=== PATIENT | female | born 1935 | race Two or more races ===

== ENCOUNTER 2023-02-09 19:18 | Inpatient (IN) | payer MEDICARE ==
[~2023-02-09] VITALS: Ht 167.6 cm; Wt 71.7 kg
[2023-02-09 21:24] LABS: BASOPHILS % 0.4 % (0.0-2.0); EOSINOPHILS % 3.6 % (0.0-5.0); HEMATOCRIT. 34.9 % (36.0-48.0); HEMOGLOBIN. 11.5 g/dL (12.0-16.0); LYMPHOCYTES % 23.6 % (20.0-50.0); MEAN CORPUSCULAR HEMOGLOBIN 30.2 pg (28.0-32.0); MEAN CORPUSCULAR VOLUME 91.3 fL (81.0-99.0); MEAN PLATELET VOLUME 8.5 fl (7.4-10.4); MONOCYTES % 6.4 % (2.0-8.0); PLATELET 161 x1000/uL (130-400); RED BLOOD CELL COUNT 3.82 mill/uL (4.2-5.4); RED CELL DISTRIBUTION WIDTH 14.7 % (11.6-14.6); WHITE BLOOD COUNT 5.5 x1000/uL (4.5-11.0)
[2023-02-09 21:30] LABS: CHLORIDE 107 mEq/L (98-107); INDEX HEMOLYSI 1 (1-3); INDEX ICTERIC 1 (1-4); INDEX LIPEMIC 1 (1-3); POTASSIUM 3.8 mEq/L (3.5-5.1); SODIUM 140 mEq/L (136-145)
[2023-02-09 21:40] LABS: ALANINE AMINOTRANSFERASE 27 IU/L (13-61); ALBUMIN 3.5 g/dL (3.4-5.0); ASPARTATE AMINOTRANSFERASE 17 IU/L (15-37); BILIRUBIN TOTAL 0.2 mg/dL (0.1-1.0); CALCIUM 9.3 mg/dL (8.5-10.1); CARBON DIOXIDE 28 mEq/L (21-32); CREATININE 1.1 mg/dL (0.6-1.3); GLUCOSE 136 mg/dL (70-105); PROTEIN TOTAL 7.6 g/dL (6.0-8.3); UREA NITROGEN BLOOD 20 mg/dL (7-21)
[2023-02-09 22:16] LABS: TROPONIN I HIGH SENSITIVITY 7 ng/L (<54)
[2023-02-10 02:05] LABS: TROPONIN I HIGH SENSITIVITY 7 ng/L (<54)
[2023-02-10] MEDS ORDERED: HYDRALAZINE 20MG/ML VIAL IV PRN (04:15)
[2023-02-10] MEDS ORDERED: DEXT 5%/0.9% NACL 500 ML IV ONE (04:15)
[2023-02-10 06:37] VITALS: BP 141/86; PULSE 101; RESP 16; TEMP 97.4
[2023-02-10 07:44] LABS: INDEX HEMOLYSI 2 (1-3)
[2023-02-10 08:00] VITALS: BP 135/63; PULSE 89; RESP 18; TEMP 97.3
[2023-02-10 08:08] LABS: CREATINE KINASE MB FRACTION 1.4 ng/mL (0.5-3.6); PHOSPHORUS 2.2 mg/dL (2.5-4.9)
[2023-02-10 08:14] LABS: VITAMIN B12 SERUM 1023 pg/mL (211-911)
[2023-02-10 08:24] LABS: FOLIC ACID (FOLATE) SERUM > 20.00 ng/mL (>5.38)
[2023-02-10] MEDS ORDERED: GUAIFENESIN 200MG/10ML SUGAR FREE UDC PO PRN (08:45)
[2023-02-10] MEDS ORDERED: NITROGLYCERIN 0.4MG TABLET SL SL PRN (08:45)
[2023-02-10] MEDS ORDERED: DOCUSATE SODIUM 100MG CAPSULE PO PRN (08:45)
[2023-02-10] MEDS ORDERED: ACETAMINOPHEN 325MG TABLET PO PRN ×2 (08:45)
[2023-02-10] MEDS ORDERED: MAGNESIUM/ALUMINUM HYDROXIDE/SIMETHICONE 30ML UDC PO PRN (08:45)
[2023-02-10] MEDS ORDERED: ZOLPIDEM TARTRATE 5MG TABLET PO PRN (08:45)
[2023-02-10] MEDS ORDERED: KETOROLAC 15MG/ML VIAL IV PRN (08:45)
[2023-02-10] MEDS ORDERED: IPRATROPIUM/ALBUTEROL 0.5-3(2.5)MG/3ML NEB NEB PRN (08:45)
[2023-02-10] MEDS ORDERED: CLONIDINE 0.1MG TABLET PO PRN (08:45)
[2023-02-10] MEDS ORDERED: ONDANSETRON HCL 4MG/2ML INJ IV PRN (08:45)
[2023-02-10] MEDS: ASPIRIN 325MG EC TABLET PO SCH (09:50)
[2023-02-10] MEDS: AMLODIPINE 10MG TABLET PO SCH (09:50)
[2023-02-10] MEDS: ENOXAPARIN 30MG/0.3ML SYR SUBCUT SCH (09:51)
[2023-02-10] MEDS ORDERED: TRAZ-251 MT (10:02)
[2023-02-10] MEDS ORDERED: DONE23TA3 MT (10:02)
[2023-02-10] MEDS ORDERED: ISMO20 MT (10:02)
[2023-02-10] MEDS ORDERED: IPRA4AER INH (10:02)
[2023-02-10] MEDS ORDERED: CLON-457 PO (10:02)
[2023-02-10] MEDS ORDERED: TELM80TA8 MT (10:02)
[2023-02-10] MEDS ORDERED: ATOR10TA PO (10:02)
[2023-02-10] MEDS ORDERED: POTASSIUM PHOS,M-BASIC-D-BASIC 10 MMOL in DEXT 5% WATER 246.6667 ML IV NR (10:30)
[2023-02-10 12:00] VITALS: BP 157/70; PULSE 78; RESP 17; TEMP 96.9
[2023-02-10 12:10] LABS: CLARITY URINE CLOUDY (CLEAR); COLOR URINE YELLOW (YELLOW); GLUCOSE URINE NEGATIVE (NEGATIVE); KETONES URINE NEGATIVE (NEGATIVE); LEUKOCYTE ESTERASE URINE NEGATIVE (NEGATIVE); NITRITE URINE NEGATIVE (NEGATIVE); OCCULT BLOOD URINE NEGATIVE (NEGATIVE); PROTEIN URINE NEGATIVE (NEGATIVE); UROBILINOGEN URINE 0.2 E.U./dL (0.2-1.0)
[2023-02-10 12:13] LABS: RBC URINE 0-2 /hpf (0-2); SQUAMOUS EPITHELIAL CELL URINE 1+ /lpf (RARE/1+); WBC URINE 0-2 /hpf (0-2); YEAST URINE NONE SEEN
[2023-02-10 12:32] LABS: BACTERIA URINE FEW
[2023-02-10 13:41] LABS: *AMPHETAMINES SCREEN URINE NEGATIVE (NEGATIVE); *BARBITURATES SCREEN URINE NEGATIVE (NEGATIVE); *BENZODIAZEPINES SCREEN URINE NEGATIVE (NEGATIVE); *COCAINE SCREEN URINE NEGATIVE (NEGATIVE); CANNABINOID URINE SCREEN NEGATIVE (NEGATIVE); ECSTASY MDMA SCREEN URINE NEGATIVE (NEGATIVE); METHADONE URINE SCREEN NEGATIVE (NEGATIVE); OPIATES URINE SCREEN NEGATIVE (NEGATIVE); PHENCYCLIDINE URINE SCREEN NEGATIVE (NEGATIVE)
[2023-02-10 20:00] VITALS: BP 133/55; PULSE 76; RESP 18; TEMP 98.6
[2023-02-10] MEDS: FAMOTIDINE 20MG TABLET PO SCH (21:39)
[2023-02-10 23:39] LABS: CREATINE KINASE MB FRACTION 1.5 ng/mL (0.5-3.6)
[2023-02-11] VITALS: BP 128/60; PULSE 89; RESP 18; TEMP 98.8
[2023-02-11 04:00] VITALS: BP 150/57; PULSE 64; RESP 20; TEMP 98.8
[2023-02-11 06:52] LABS: BASOPHILS % 0.8 % (0.0-2.0); EOSINOPHILS % 6.2 % (0.0-5.0); HEMATOCRIT. 33.8 % (36.0-48.0); HEMOGLOBIN. 11.1 g/dL (12.0-16.0); LYMPHOCYTES % 38.8 % (20.0-50.0); MEAN CORPUSCULAR HEMOGLOBIN 29.8 pg (28.0-32.0); MEAN CORPUSCULAR HGB CONC 32.9 g/dL (31.0-37.0); MEAN CORPUSCULAR VOLUME 90.7 fL (81.0-99.0); MEAN PLATELET VOLUME 9.4 fl (7.4-10.4); MONOCYTES % 9.2 % (2.0-8.0); PLATELET 170 x1000/uL (130-400); RED BLOOD CELL COUNT 3.73 mill/uL (4.2-5.4); RED CELL DISTRIBUTION WIDTH 14.7 % (11.6-14.6); WHITE BLOOD COUNT 3.6 x1000/uL (4.5-11.0)
[2023-02-11 07:34] LABS: CHLORIDE 110 mEq/L (98-107); INDEX HEMOLYSI 1 (1-3); INDEX ICTERIC 1 (1-4); INDEX LIPEMIC 1 (1-3); POTASSIUM 3.8 mEq/L (3.5-5.1); SODIUM 141 mEq/L (136-145)
[2023-02-11 07:47] LABS: ALANINE AMINOTRANSFERASE 22 IU/L (13-61); ALBUMIN 3.3 g/dL (3.4-5.0); ASPARTATE AMINOTRANSFERASE 19 IU/L (15-37); BILIRUBIN TOTAL 0.4 mg/dL (0.1-1.0); CALCIUM 8.9 mg/dL (8.5-10.1); CARBON DIOXIDE 26 mEq/L (21-32); CHOLESTEROL 154 mg/dL (<200); CREATININE 0.9 mg/dL (0.6-1.3); GLUCOSE 99 mg/dL (70-105); HDL CHOLESTEROL 80 mg/dL (40-59); LDL CHOLESTEROL 75 mg/dL (5-100); PHOSPHORUS 3.4 mg/dL (2.5-4.9); PROTEIN TOTAL 7.1 g/dL (6.0-8.3); T4 FREE 1.08 ng/dL (0.76-1.46); TRIGLYCERIDE 53 mg/dL (0-150); TROPONIN I HIGH SENSITIVITY 17 ng/L (<54); UREA NITROGEN BLOOD 15 mg/dL (7-21)
[2023-02-11 08:00] VITALS: BP 140/98; PULSE 77; RESP 20; TEMP 98
[2023-02-11] MEDS ORDERED: CEFTRIAXONE 1GM PREMIX 50 ML IV SCH (09:30)
[2023-02-11] MEDS: AMLODIPINE 10MG TABLET PO SCH (10:59)
[2023-02-11] MEDS: ASPIRIN 325MG EC TABLET PO SCH (10:59)
[2023-02-11] MEDS: ENOXAPARIN 30MG/0.3ML SYR SUBCUT SCH (11:00)
[2023-02-11] MEDS: LOSARTAN POTASSIUM 50 MG TABLET PO SCH (11:25)
[2023-02-11 12:00] VITALS: BP 139/44; PULSE 80; RESP 20; TEMP 98.1
[2023-02-11] MEDS: CEFTRIAXONE 1,000 MG in DEXTROSE 5% WATER 50 ML IV SCH (13:06)
[2023-02-11 16:00] VITALS: BP 157/51; PULSE 82; RESP 20; TEMP 98.1
[2023-02-11 20:00] VITALS: BP 138/58; PULSE 80; RESP 17; TEMP 97.6
[2023-02-11] MEDS: FAMOTIDINE 20MG TABLET PO SCH (20:41)
[2023-02-12] VITALS: BP 116/56; PULSE 70; RESP 20; TEMP 97.6
[2023-02-12 04:00] VITALS: BP 148/51; PULSE 71; RESP 18; TEMP 97.6
[2023-02-12 08:00] VITALS: BP 136/72; PULSE 68; RESP 16; TEMP 96.9
[2023-02-12 08:35] LABS: CHLORIDE 109 mEq/L (98-107); HEMATOCRIT 34.8 % (36.0-48.0); HEMOGLOBIN 11.4 g/dL (12.0-16.0); INDEX HEMOLYSI 2 (1-3); INDEX ICTERIC 1 (1-4); INDEX LIPEMIC 1 (1-3); MEAN CORPUSCULAR HEMOGLOBIN 29.8 pg (28.0-32.0); MEAN CORPUSCULAR HGB CONC 32.7 g/dL (31.0-37.0); MEAN CORPUSCULAR VOLUME 91.1 fL (81.0-99.0); POTASSIUM 3.6 mEq/L (3.5-5.1); RED BLOOD CELL COUNT 3.82 mill/uL (4.2-5.4); RED CELL DISTRIBUTION WIDTH 14.2 % (11.6-14.6); SODIUM 140 mEq/L (136-145); WHITE BLOOD COUNT 5.5 x1000/uL (4.5-11.0)
[2023-02-12 08:43] LABS: ALANINE AMINOTRANSFERASE 18 IU/L (13-61); ALBUMIN 3.1 g/dL (3.4-5.0); ASPARTATE AMINOTRANSFERASE 18 IU/L (15-37); BILIRUBIN TOTAL 0.3 mg/dL (0.1-1.0); CALCIUM 8.8 mg/dL (8.5-10.1); CARBON DIOXIDE 26 mEq/L (21-32); CREATININE 0.9 mg/dL (0.6-1.3); GLUCOSE 108 mg/dL (70-105); UREA NITROGEN BLOOD 13 mg/dL (7-21)
[2023-02-12] MEDS: ASPIRIN 325MG EC TABLET PO SCH (10:40)
[2023-02-12] MEDS: CEFTRIAXONE 1,000 MG in DEXTROSE 5% WATER 50 ML IV SCH (10:40)
[2023-02-12] MEDS: LOSARTAN POTASSIUM 50 MG TABLET PO SCH (10:40)
[2023-02-12] MEDS: ENOXAPARIN 30MG/0.3ML SYR SUBCUT SCH (10:41)
[2023-02-12] MEDS: AMLODIPINE 10MG TABLET PO SCH (10:46)
[2023-02-12 12:00] VITALS: BP 132/52; PULSE 73; RESP 16; TEMP 96.4
[2023-02-12] MEDS ORDERED: LEVO-65 MT (14:27)
[2023-02-12 16:00] VITALS: BP 120/63; PULSE 70; RESP 17; TEMP 96.8
[2023-02-12 16:00] LABS: PLATELET 131 x1000/uL (130-400)
[2023-02-12 20:00] VITALS: BP 149/85; PULSE 70; RESP 18; TEMP 98.1
[2023-02-12] MEDS: FAMOTIDINE 20MG TABLET PO SCH (21:03)
[2023-02-13] VITALS: BP 119/53; PULSE 71; RESP 17; TEMP 98.1
[2023-02-13 08:00] VITALS: BP 144/97; RESP 20; TEMP 99
[2023-02-13] MEDS: ASPIRIN 325MG EC TABLET PO SCH (09:37)
[2023-02-13] MEDS: LOSARTAN POTASSIUM 50 MG TABLET PO SCH (09:38)
[2023-02-13] MEDS: AMLODIPINE 10MG TABLET PO SCH (09:38)
[2023-02-13] MEDS: ENOXAPARIN 30MG/0.3ML SYR SUBCUT SCH (09:38)
[2023-02-13 11:15] VITALS: BP 126/60; PULSE 82; TEMP 97; O2SAT 98
== END 2023-02-13 11:55 | disposition home health service (06) | DRG 280 ==
LOC: ER 19:18 → MICUSO 22:28 → 8WST 02-10 05:26
PROVIDERS: ADMIT Internal Medicine; ATTEND Internal Medicine
DX: I21.4 Non-ST elevation (NSTEMI) myocardial infarction (principal); G92.9 Unspecified toxic encephalopathy; L97.329 Non-pressure chronic ulcer of left ankle with unspecified severity; N39.0 Urinary tract infection, site not specified; I16.0 Hypertensive urgency; E78.5 Hyperlipidemia, unspecified; D50.9 Iron deficiency anemia, unspecified; F03.90 Unspecified dementia, unspecified severity, without behavioral disturbance, psychotic disturbance, mood disturbance, and anxiety; I10 Essential (primary) hypertension; I20.8 Other forms of angina pectoris; R73.03 Prediabetes; Z79.82 Long term (current) use of aspirin; Z79.899 Other long term (current) drug therapy
CPT/HCPCS: 36415; 71045; 76881; 80053; 80061; 80305; 81003; 82550; 82553; 82607; 82728; 82746; 83036; 83540; 83550; 83605; 83735; 83880; 84100; 84145; 84439; 84443; 84484; 85025; 85027; 85379; 87077; 87186; 93005; 93306; 93970; 97162; 97166; 97530; 99285; J0360; J0696; J1650; J3490; J7060

== ENCOUNTER 2023-04-29 18:24 | Inpatient (IN) | payer MEDICARE ==
[~2023-04-29] VITALS: Ht 162.6 cm; Wt 63.5 kg
[~2023-04-29 18:24] MED LIST: ATOR10TA PO; CLON-493 PO; DONE23TA3 MT; IPRA4AER INH; ISMO20 MT; LEVO-65 MT; TELM80TA8 MT; TRAZ-251 MT
[2023-04-29] MEDS ORDERED: ONDANSETRON HCL 4MG/2ML INJ IV STA (18:28)
[2023-04-29] MEDS ORDERED: SODIUM CHLORIDE 0.9% 1,000 ML IV ONE (18:30)
[2023-04-29 18:48] LABS: BASOPHILS % 1.2 % (0.0-2.0); EOSINOPHILS % 2.7 % (0.0-5.0); HEMATOCRIT. 37.3 % (36.0-48.0); LYMPHOCYTES % 52.5 % (20.0-50.0); MEAN CORPUSCULAR HGB CONC 32.1 g/dL (31.0-37.0); MEAN CORPUSCULAR VOLUME 93.6 fL (81.0-99.0); MEAN PLATELET VOLUME 9.6 fl (7.4-10.4); MONOCYTES % 6.7 % (2.0-8.0); NEUTROPHILS % 36.9 % (40.0-76.0); PLATELET 138 x1000/uL (130-400); RED BLOOD CELL COUNT 3.98 mill/uL (4.2-5.4); RED CELL DISTRIBUTION WIDTH 15.4 % (11.6-14.6); WHITE BLOOD COUNT 5.6 x1000/uL (4.5-11.0)
[2023-04-29 19:07] LABS: CHLORIDE 110 mEq/L (98-107); INDEX HEMOLYSI 4 (1-3); INDEX ICTERIC 1 (1-4); INDEX LIPEMIC 1 (1-3); SODIUM 142 mEq/L (136-145)
[2023-04-29 19:11] LABS: POTASSIUM 4.4 mEq/L (3.5-5.1)
[2023-04-29 19:16] LABS: ALANINE AMINOTRANSFERASE 23 IU/L (13-61); ALBUMIN 3.7 g/dL (3.4-5.0); ASPARTATE AMINOTRANSFERASE 30 IU/L (15-37); BILIRUBIN TOTAL 0.5 mg/dL (0.1-1.0); CALCIUM 8.6 mg/dL (8.5-10.1); CARBON DIOXIDE 26 mEq/L (21-32); CREATININE 1.2 mg/dL (0.6-1.3); GLUCOSE 128 mg/dL (70-105); NT PRO B-TYPE NATRIURETIC PEP 444 pg/mL (5-125); PROTEIN TOTAL 7.9 g/dL (6.0-8.3); TROPONIN I HIGH SENSITIVITY 8 ng/L (<54); UREA NITROGEN BLOOD 18 mg/dL (7-21)
[2023-04-29 21:14] VITALS: BP 127/62; PULSE 69; RESP 16; TEMP 97.7
[2023-04-29] MEDS ORDERED: GUAIFENESIN 200MG/10ML SUGAR FREE UDC PO PRN (22:30)
[2023-04-29] MEDS ORDERED: MAGNESIUM/ALUMINUM HYDROXIDE/SIMETHICONE 30ML UDC PO PRN (22:30)
[2023-04-29] MEDS ORDERED: DOCUSATE SODIUM 100MG CAPSULE PO PRN (22:30)
[2023-04-29] MEDS ORDERED: ONDANSETRON HCL 4MG/2ML INJ IV PRN (22:30)
[2023-04-29] MEDS ORDERED: ACETAMINOPHEN 325MG TABLET PO PRN ×2 (22:30)
[2023-04-29] MEDS ORDERED: CLONIDINE 0.1MG TABLET PO PRN (22:30)
[2023-04-29] MEDS ORDERED: IPRATROPIUM/ALBUTEROL 0.5-3(2.5)MG/3ML NEB HHN PRN (22:30)
[2023-04-30] VITALS: BP_SYST 115; BP_SYST 128; BP_DIAS 46; BP_DIAS 56; PULSE 61; PULSE 67; RESP 16; TEMP 97.9; TEMP 98.1
[2023-04-30] MEDS: DONEPEZIL HCL 10MG TABLET PO SCH ×3 (01:04→22:20)
[2023-04-30] MEDS: LOSARTAN 100 MG TABLET PO SCH ×2 (01:04→09:42)
[2023-04-30 04:49] VITALS: BP 149/87; PULSE 70; RESP 18; TEMP 97.4
[2023-04-30 06:26] LABS: BASOPHILS % 0.3 % (0.0-2.0); EOSINOPHILS % 2.2 % (0.0-5.0); HEMATOCRIT. 31.5 % (36.0-48.0); HEMOGLOBIN. 10.5 g/dL (12.0-16.0); LYMPHOCYTES % 43.2 % (20.0-50.0); MEAN CORPUSCULAR HEMOGLOBIN 30.9 pg (28.0-32.0); MEAN CORPUSCULAR HGB CONC 33.3 g/dL (31.0-37.0); MEAN CORPUSCULAR VOLUME 92.8 fL (81.0-99.0); MEAN PLATELET VOLUME 9.7 fl (7.4-10.4); MONOCYTES % 8.7 % (2.0-8.0); NEUTROPHILS % 45.6 % (40.0-76.0); PLATELET 124 x1000/uL (130-400); RED BLOOD CELL COUNT 3.39 mill/uL (4.2-5.4); RED CELL DISTRIBUTION WIDTH 15.2 % (11.6-14.6); WHITE BLOOD COUNT 3.9 x1000/uL (4.5-11.0)
[2023-04-30 06:30] LABS: CHLORIDE 112 mEq/L (98-107); INDEX HEMOLYSI 1 (1-3); INDEX ICTERIC 1 (1-4); INDEX LIPEMIC 1 (1-3); POTASSIUM 3.8 mEq/L (3.5-5.1); SODIUM 143 mEq/L (136-145)
[2023-04-30 06:53] LABS: ALANINE AMINOTRANSFERASE 17 IU/L (13-61); ALBUMIN 3.2 g/dL (3.4-5.0); ASPARTATE AMINOTRANSFERASE 10 IU/L (15-37); BILIRUBIN TOTAL 0.4 mg/dL (0.1-1.0); CALCIUM 8.6 mg/dL (8.5-10.1); CARBON DIOXIDE 28 mEq/L (21-32); CHOLESTEROL 141 mg/dL (<200); GLUCOSE 94 mg/dL (70-105); HDL CHOLESTEROL 70 mg/dL (40-59); LDL CHOLESTEROL 69 mg/dL (5-100); PROTEIN TOTAL 6.4 g/dL (6.0-8.3); T4 FREE 1.09 ng/dL (0.76-1.46); TRIGLYCERIDE 55 mg/dL (0-150); UREA NITROGEN BLOOD 18 mg/dL (7-21)
[2023-04-30 08:00] VITALS: BP 143/62; PULSE 61; RESP 18; TEMP 98.1
[2023-04-30] MEDS ORDERED: MEDICATION NOT ON FORMULARY EA (Donepezil HCl 1 TAB) MT SCH (09:00)
[2023-04-30] MEDS: FAMOTIDINE 20MG TABLET PO SCH (09:41)
[2023-04-30] MEDS: ISOSORBIDE MONONITRATE 20MG TABLET PO SCH (09:41)
[2023-04-30 12:00] VITALS: BP 111/43; PULSE 60; RESP 20; TEMP 99
[2023-04-30 14:06] LABS: TROPONIN I HIGH SENSITIVITY 9 ng/L (<54)
[2023-04-30 16:00] VITALS: BP 138/51; PULSE 100; RESP 20; TEMP 97.9
[2023-04-30 20:00] VITALS: BP 128/46; PULSE 61; RESP 16; TEMP 97.9
[2023-04-30] MEDS: TRAZODONE HCL 50MG TABLET PO SCH (22:20)
[2023-04-30] MEDS: ATORVASTATIN CALCIUM 10MG TABLET PO SCH (22:21)
[2023-04-30] MEDS ORDERED: INFLUENZA VACCINE 05/PF 0.5 ML SYRINGE IM ONE (22:30)
[2023-04-30] MEDS ORDERED: PNEUMOCOCCAL 23-VAL P-SAC VAC 0.5 ML IM ONE (22:30)
[2023-04-30] MEDS ORDERED: CLON1PAT11 TD (22:32)
[2023-04-30] MEDS ORDERED: PANT40TA51 PO (22:32)
[2023-04-30] MEDS ORDERED: TRAZ-251 PO (22:32)
[2023-04-30] MEDS ORDERED: AMLO5TAB88 PO (22:32)
[2023-04-30] MEDS ORDERED: DONE-53 PO (22:34)
[2023-04-30] MEDS ORDERED: DOCU-150 PO (22:34)
[2023-04-30] MEDS ORDERED: ISOS30TA91 PO (22:34)
[2023-04-30] MEDS ORDERED: ATOR10TA69 PO (22:34)
[2023-05-01] VITALS: BP 113/41; PULSE 62; RESP 17; TEMP 97.7
[2023-05-01 04:00] VITALS: BP 129/43; PULSE 57; RESP 57; TEMP 97.5
[2023-05-01 06:32] LABS: BASOPHILS % 0.5 % (0.0-2.0); LYMPHOCYTES % 47.9 % (20.0-50.0); MEAN CORPUSCULAR HEMOGLOBIN 30.5 pg (28.0-32.0); MEAN CORPUSCULAR HGB CONC 33.4 g/dL (31.0-37.0); MEAN CORPUSCULAR VOLUME 91.5 fL (81.0-99.0); MONOCYTES % 6.7 % (2.0-8.0); NEUTROPHILS % 39.9 % (40.0-76.0); PLATELET 129 x1000/uL (130-400); RED BLOOD CELL COUNT 3.28 mill/uL (4.2-5.4); RED CELL DISTRIBUTION WIDTH 15.4 % (11.6-14.6); WHITE BLOOD COUNT 3.8 x1000/uL (4.5-11.0)
[2023-05-01 07:14] LABS: POTASSIUM 4.1 mEq/L (3.5-5.1)
[2023-05-01 08:00] VITALS: BP 140/48; PULSE 64; RESP 16; TEMP 96.5
[2023-05-01] MEDS: ISOSORBIDE MONONITRATE 20MG TABLET PO SCH (09:16)
[2023-05-01] MEDS: LOSARTAN 100 MG TABLET PO SCH (09:17)
[2023-05-01] MEDS: DONEPEZIL HCL 10MG TABLET PO SCH ×2 (09:17→21:15)
[2023-05-01 12:00] VITALS: BP 119/48; PULSE 70; RESP 17; TEMP 96.5
[2023-05-01 20:00] VITALS: BP 122/45; PULSE 71; RESP 20; TEMP 97.3
[2023-05-01] MEDS: ATORVASTATIN CALCIUM 10MG TABLET PO SCH (21:15)
[2023-05-01] MEDS: TRAZODONE HCL 50MG TABLET PO SCH (21:15)
[2023-05-02] VITALS: BP 123/41; PULSE 56; RESP 17; TEMP 97.8
[2023-05-02 04:00] VITALS: BP_SYST 149; BP_DIAS 47; BP_DIAS 71; PULSE 72; RESP 16; RESP 18; TEMP 97.8
[2023-05-02 08:00] VITALS: BP 124/58; PULSE 82; RESP 19; TEMP 97.6
[2023-05-02] MEDS: FAMOTIDINE 20MG TABLET PO SCH (08:43)
[2023-05-02] MEDS: LOSARTAN 100 MG TABLET PO SCH (08:44)
[2023-05-02] MEDS: DONEPEZIL HCL 10MG TABLET PO SCH (08:44)
[2023-05-02] MEDS: ISOSORBIDE MONONITRATE 20MG TABLET PO SCH (08:44)
[2023-05-02 12:00] VITALS: BP 111/49; PULSE 84; RESP 18; TEMP 97.6
[2023-05-02 15:21] VITALS: BP 111/49; PULSE 82; TEMP 97.6; O2SAT 96
[2023-05-02 16:00] VITALS: BP 104/56; PULSE 80; RESP 16; TEMP 97
== END 2023-05-02 16:20 | DRG 871 ==
LOC: ER 18:24 → 8WST 19:30 → EDBEDREQ 19:32
PROVIDERS: ADMIT Internal Medicine; ATTEND Internal Medicine
DX: A41.9 Sepsis, unspecified organism (principal); G93.41 Metabolic encephalopathy; I50.30 Unspecified diastolic (congestive) heart failure; D64.9 Anemia, unspecified; E78.5 Hyperlipidemia, unspecified; F03.90 Unspecified dementia, unspecified severity, without behavioral disturbance, psychotic disturbance, mood disturbance, and anxiety; I11.0 Hypertensive heart disease with heart failure; G40.909 Epilepsy, unspecified, not intractable, without status epilepticus; I49.9 Cardiac arrhythmia, unspecified; I25.10 Atherosclerotic heart disease of native coronary artery without angina pectoris; I25.2 Old myocardial infarction; I44.0 Atrioventricular block, first degree; K59.00 Constipation, unspecified; Z79.899 Other long term (current) drug therapy; Z82.49 Family history of ischemic heart disease and other diseases of the circulatory system
CPT/HCPCS: 36415; 70551; 71045; 80048; 80053; 80061; 83605; 83880; 84145; 84439; 84443; 84484; 85025; 93005; 93306; 97162; 97166; 97530; 97535; 99285; J2405; J7030

== ENCOUNTER 2023-10-27 15:12 | Inpatient (IN) | payer MEDICARE ==
[~2023-10-27] VITALS: Ht 162.6 cm; Wt 64.0 kg
[~2023-10-27 15:12] MED LIST changes: +AMLO5TAB88 PO; -ATOR10TA PO; +ATOR10TA69 PO; -CLON-493 PO; +DOCU-150 PO; +DONE-53 PO; -DONE23TA3 MT; -IPRA4AER INH; -ISMO20 MT; +ISOS30TA91 PO; -LEVO-65 MT; +LOSA-415 MT; +PANT40TA51 PO; -TRAZ-251 MT
[2023-10-27 16:12] LABS: BASOPHILS % 0.7 % (0.0-2.0); EOSINOPHILS % 1.5 % (0.0-5.0); HEMATOCRIT. 36.7 % (36.0-48.0); HEMOGLOBIN. 11.8 g/dL (12.0-16.0); LYMPHOCYTES % 30.7 % (20.0-50.0); MEAN CORPUSCULAR HGB CONC 32.3 g/dL (31.0-37.0); MEAN PLATELET VOLUME 9.3 fl (7.4-10.4); MONOCYTES % 6.5 % (2.0-8.0); NEUTROPHILS % 60.6 % (40.0-76.0); PLATELET 126 x1000/uL (130-400); RED BLOOD CELL COUNT 3.82 mill/uL (4.2-5.4); RED CELL DISTRIBUTION WIDTH 15.5 % (11.6-14.6); WHITE BLOOD COUNT 4.5 x1000/uL (4.5-11.0)
[2023-10-27 16:20] LABS: CHLORIDE 109 mEq/L (98-107); POTASSIUM 3.6 mEq/L (3.5-5.1); SODIUM 141 mEq/L (136-145)
[2023-10-27 16:21] LABS: CALCIUM 9.8 mg/dL (8.7-10.4); CARBON DIOXIDE 25 mEq/L (21-32)
[2023-10-27 16:26] LABS: CREATININE 1.2 mg/dL (0.6-1.0); GLUCOSE 122 mg/dL (70-105); UREA NITROGEN BLOOD 15 mg/dL (9-23)
[2023-10-27 16:54] LABS: TROPONIN I HIGH SENSITIVITY < 4 ng/L (3.0-34)
[2023-10-27 17:50] LABS: TROPONIN I HIGH SENSITIVITY < 4 ng/L (3.0-34)
[2023-10-27 20:01] LABS: PROTHROMBIN TIME 10.9 sec (9.6-11.0)
[2023-10-27] MEDS ORDERED: ACETAMINOPHEN 325MG TABLET PO PRN ×2 (22:15)
[2023-10-27] MEDS ORDERED: ONDANSETRON HCL 4MG/2ML INJ IV PRN (22:15)
[2023-10-27] MEDS ORDERED: CLONIDINE 0.1MG TABLET PO PRN (22:15)
[2023-10-27] MEDS ORDERED: IPRATROPIUM/ALBUTEROL 0.5-3(2.5)MG/3ML NEB HHN PRN (22:15)
[2023-10-28 01:02] LABS: TROPONIN I HIGH SENSITIVITY < 4 ng/L (3.0-34)
[2023-10-28 02:32] VITALS: BP 156/64; PULSE 88; RESP 20; TEMP 98.2
[2023-10-28 04:00] VITALS: BP 122/56; PULSE 67; RESP 18; TEMP 97.7
[2023-10-28 07:22] LABS: CARBON DIOXIDE 25 mEq/L (21-32); CHLORIDE 110 mEq/L (98-107); POTASSIUM 3.5 mEq/L (3.5-5.1); SODIUM 141 mEq/L (136-145)
[2023-10-28 07:23] LABS: CALCIUM 9.7 mg/dL (8.7-10.4)
[2023-10-28 07:28] LABS: CREATININE 0.8 mg/dL (0.6-1.0); GLUCOSE 107 mg/dL (70-105); UREA NITROGEN BLOOD 15 mg/dL (9-23)
[2023-10-28 07:59] LABS: BASOPHILS % 0.4 % (0.0-2.0); EOSINOPHILS % 1.7 % (0.0-5.0); HEMATOCRIT. 30.8 % (36.0-48.0); HEMOGLOBIN. 10.2 g/dL (12.0-16.0); LYMPHOCYTES % 37.4 % (20.0-50.0); MEAN CORPUSCULAR HEMOGLOBIN 30.3 pg (28.0-32.0); MEAN CORPUSCULAR VOLUME 91.7 fL (81.0-99.0); MEAN PLATELET VOLUME 9.2 fl (7.4-10.4); MONOCYTES % 7.5 % (2.0-8.0); PLATELET 149 x1000/uL (130-400); RED BLOOD CELL COUNT 3.36 mill/uL (4.2-5.4); RED CELL DISTRIBUTION WIDTH 14.8 % (11.6-14.6); WHITE BLOOD COUNT 4.1 x1000/uL (4.5-11.0)
[2023-10-28 08:00] VITALS: BP 136/50; PULSE 63; RESP 18; TEMP 97.7
[2023-10-28 12:00] VITALS: BP 107/59; PULSE 60; RESP 18; TEMP 97.6
[2023-10-28] MEDS ORDERED: HYDRALAZINE HCL 25MG TABLET PO PRN (15:00)
[2023-10-28] MEDS: POTASSIUM CHLORIDE 20MEQ TABLET SR PO NR (15:39)
[2023-10-28 15:50] LABS: CLARITY URINE CLEAR (CLEAR); COLOR URINE YELLOW (YELLOW); GLUCOSE URINE NEGATIVE (NEGATIVE); KETONES URINE NEGATIVE (NEGATIVE); LEUKOCYTE ESTERASE URINE NEGATIVE (NEGATIVE); NITRITE URINE NEGATIVE (NEGATIVE); OCCULT BLOOD URINE NEGATIVE (NEGATIVE); PROTEIN URINE NEGATIVE (NEGATIVE); SPECIFIC GRAVITY URINE 1.021 (1.005-1.030); UROBILINOGEN URINE 0.2 E.U./dL (0.2-1.0)
[2023-10-28 16:00] VITALS: BP_SYST 134; BP_SYST 139; BP_SYST 144; BP_DIAS 51; BP_DIAS 56; BP_DIAS 60; PULSE 64; RESP 18; TEMP 97.8
[2023-10-28 22:39] VITALS: BP 139/51; PULSE 61; RESP 18; TEMP 97.7
[2023-10-29] VITALS: BP 151/64; PULSE 67; RESP 17; TEMP 97.7
[2023-10-29 04:00] VITALS: BP 148/61; PULSE 71; RESP 20; TEMP 97.5
[2023-10-29 07:26] LABS: BASOPHILS % 0.6 % (0.0-2.0); EOSINOPHILS % 2.3 % (0.0-5.0); HEMATOCRIT. 32.4 % (36.0-48.0); HEMOGLOBIN. 10.7 g/dL (12.0-16.0); LYMPHOCYTES % 47.7 % (20.0-50.0); MEAN CORPUSCULAR HEMOGLOBIN 30.3 pg (28.0-32.0); MEAN CORPUSCULAR HGB CONC 33.1 g/dL (31.0-37.0); MEAN CORPUSCULAR VOLUME 91.5 fL (81.0-99.0); MEAN PLATELET VOLUME 9.2 fl (7.4-10.4); MONOCYTES % 7.1 % (2.0-8.0); NEUTROPHILS % 42.3 % (40.0-76.0); PLATELET 160 x1000/uL (130-400); RED BLOOD CELL COUNT 3.54 mill/uL (4.2-5.4); RED CELL DISTRIBUTION WIDTH 15.1 % (11.6-14.6); WHITE BLOOD COUNT 3.7 x1000/uL (4.5-11.0)
[2023-10-29 07:28] LABS: CARBON DIOXIDE 25 mEq/L (21-32); CHLORIDE 106 mEq/L (98-107); POTASSIUM 3.9 mEq/L (3.5-5.1); SODIUM 139 mEq/L (136-145)
[2023-10-29 07:29] LABS: CALCIUM 9.9 mg/dL (8.7-10.4)
[2023-10-29 07:34] LABS: CREATININE 0.8 mg/dL (0.6-1.0); GLUCOSE 86 mg/dL (70-105); TRIGLYCERIDE 69 mg/dL (0-150); UREA NITROGEN BLOOD 14 mg/dL (9-23)
[2023-10-29 07:35] LABS: LDL CHOLESTEROL 86 mg/dL (5-100)
[2023-10-29 07:36] LABS: CHOLESTEROL 156 mg/dL (<200); HDL CHOLESTEROL 62 mg/dL (>65); T4 FREE 1.22 ng/dL (0.89-1.76); THYROID STIMULATING HORMONE 3.51 uIU/mL (0.55-4.78)
[2023-10-29 08:00] VITALS: BP 158/61; PULSE 65; RESP 18; TEMP 98.6
[2023-10-29] MEDS: DOCUSATE SODIUM 100MG CAPSULE PO PRN (09:32)
[2023-10-29 12:00] VITALS: BP 107/56; PULSE 64; RESP 18; TEMP 98.1
[2023-10-29 13:22] VITALS: BP 107/56; PULSE 64; TEMP 98.1; O2SAT 96
[2023-10-29 16:00] VITALS: BP 132/58; PULSE 75; RESP 20; TEMP 98.1
== END 2023-10-29 16:00 | disposition home or self-care (01) | DRG 73 ==
LOC: ER 15:12 → 5WST 18:22 → 8WST 10-28 02:02
PROVIDERS: ADMIT Family Medicine Adult Medicine; ATTEND Family Medicine Adult Medicine
DX: G90.8 Other disorders of autonomic nervous system (principal); N17.0 Acute kidney failure with tubular necrosis; F03.90 Unspecified dementia, unspecified severity, without behavioral disturbance, psychotic disturbance, mood disturbance, and anxiety; I10 Essential (primary) hypertension; E11.9 Type 2 diabetes mellitus without complications; E78.5 Hyperlipidemia, unspecified; T50.905A Adverse effect of unspecified drugs, medicaments and biological substances, initial encounter
CPT/HCPCS: 36415; 70551; 71045; 80048; 80061; 81003; 83735; 84439; 84443; 84481; 84484; 85025; 85379; 93005; 93306; 93880; 99285